=== PATIENT | male | born 1995 | race Caucasian/White ===

== ENCOUNTER 2017-12-25 11:11 | Emergency (ER) | payer OTHER ==
[~2017-12-25] VITALS: Ht 180.3 cm; Wt 63.6 kg
[2017-12-25 11:13] VITALS: TEMP 36.6; Ht 180.3 cm; Wt 63.6 kg
[2017-12-25] MEDS ORDERED: LORAZEPAM 2 MG/ML 1 ML VIAL IV STA (11:54)
[2017-12-25] MEDS ORDERED: SODIUM CHLORIDE 0.9% 1000ML 1,000 ML IV STA ×2 (11:54→13:41)
[2017-12-25] MEDS ORDERED: ONDANSETRON INJ 2 MG/ML 2 ML VIAL IV STA (11:54)
[2017-12-25 12:28] LABS: BASO % 0.1 %; BASO ABS # 0.02 K/uL (0-0.2); HEMATOCRIT 45.6 % (42-52); IG# 0.07 K/uL (0.00-0.02); LYMPH % 2.6 %; LYMPH ABS # 0.54 K/uL (1.2-3.4); MEAN CELL VOLUME 85.1 fL (80-100); MEAN CORPUSCULAR HEMOGLOBIN 31.7 pg (25-34); MEAN CORPUSCULAR HGB CONC 37.3 g/dl (32-36); MEAN PLATELET VOLUME 9.7 fL (7.4-10.4); MONO % 9.1 %; NEUT % 87.9 %; NEUT ABS # 18.37 K/uL (1.4-6.5); PLATELET COUNT 272 K/uL (130-400); RED CELL DISTRIBUTION WIDTH CV 12.5 % (11.5-14.5); RED CELL DISTRIBUTION WIDTH SD 38.3 fL (36.4-46.3)
[2017-12-25 12:46] LABS: ALBUMIN 4.8 gm/dl (3.4-5.0); CALCIUM 10.1 mg/dl (8.5-10.1); CREATININE 1.9 mg/dl (0.60-1.40); POTASSIUM 3.6 mmol/L (3.5-5.1)
[2017-12-25 12:49] LABS: TOTAL PROTEIN 8.6 gm/dl (6.4-8.2)
[2017-12-25 13:14] LABS: LIPASE 106 U/L (73-393)
[2017-12-25] MEDS ORDERED: EFF/375 PO (13:50)
[2017-12-25] MEDS ORDERED: ALPR1TAB2 PO (13:50)
[2017-12-25] MEDS ORDERED: BUPR200T2 PO (13:50)
[2017-12-25] MEDS ORDERED: PROM25TA9 PO (15:17)
--- NOTE | 2017-12-25 15:19 | EMERGENCY ROOM VISIT NOTE ---
History First contact with patient: 11:39 Chief Complaint: NAUSEA Stated Complaint: NAUSEA Nursing Triage Summary: Pt c/o n/v and anxiety since last night, has not had alcohol for a couple days and has not been taking his xanax. History of Present Illness The patient is a 22 year old male who presents to the Emergency Room with his mother, who is his medical power of personal injury attorney, with complaints of nausea, vomiting, and increased anxiety since approximately 2:00 this morning. The patient states his anxiety has been worsening over the past 3 days, and especially worse last night. From Saturday through Saturday last week, he has been drinking 6-10 6% beers per day, and states he stopped this 2 days ago. He does have a history of anxiety and depression, and states his symptoms have been out of control over the past few weeks. He was advised by his psychiatrist that the recommendation was for him to withdraw from school this semester due to his severe symptoms. The patient declined, and felt he could get himself through the school semester. He states his symptoms have been worsening over the past semester, and he has not been consistent with taking his Effexor, Wellbutrin, or Xanax. His father is in the end stages of ALS, which seems to worsen the patient's symptoms. He did stop has medications 2 days ago. He was seen at [facility] today at approximately 915 , and the recommendation was for him to come here due to his symptoms. He was given 4 mg Zofran sublingual at [facility], which did not help his symptoms. The patient has not recently been ill, and states over the past 2 days he has been very well. He describes constant nausea, and has been unable to tolerate fluids since last night. He reports weakness, chills, and difficulty breathing associated with his anxiety. He denies any coughing, congestion, rhinorrhea, sore throat, otalgia, wheezing, coughing up blood or sputum, abdominal pain, diarrhea, or other symptoms. He currently feels very panicked, and states he is experiencing a panic attack which is similar to previous panic attacks he has had. His psychiatrist in [place] was contacted by the patient's mother while she drove up to picking supervisor the patient from school, and did advise the patient's mother that she would be happy to see the patient as soon as possible. He does admit to using marijuana, but denies any other drug use. The patient denies any suicidal or homicidal ideations. Review of Systems A complete 10 point review of systems was reviewed with the patient with pertinent positives and negatives as per history of present illness. All else were negative. Past Medical/Surgical History Anxiety, depression Family History ALS - Father Social History Smoking Status: Never Smoker Smokeless Tobacco Use: No Alcohol Use: heavy Drug Use: marijuana Marital Status: single Housing Status: lives with roommate Occupation Status: [employer] student Current/Historical Medications Scheduled Bupropion (Wellbutrin Sr), 200 MG PO BID Venlafaxine Hcl (Effexor), 37.5 MG PO QPM Scheduled PRN Alprazolam (Xanax), 1 MG PO TID PRN for Anxiety/Agitation Promethazine Hcl (Phenergan), 25 MG PO Q6H PRN for Nausea Allergies Amoxicillin? Physical Exam Vital Signs Date Time Temp Pulse Resp B/P (MAP) Pulse Ox O2 Delivery O2 Flow Rate FiO2 12/25/17 15:51 99 18 136/94 99 12/25/17 13:30 91 16 153/75 96 Room Air 12/25/17 13:01 90 22 139/96 95 Room Air 12/25/17 12:42 Room Air 12/25/17 12:32 102 12/25/17 12:32 89 22 121/97 96 Room Air 12/25/17 12:02 102 22 147/106 100 Room Air 12/25/17 11:13 36.6 98 20 128/75 100 Room Air Physical Exam VITALS: Vitals are noted on the nurse's note and reviewed by myself. Vital signs stable. GENERAL: This is a 22-year-old white male, ill-appearing, but in no acute distress, diaphoretic, well-developed well-nourished. SKIN: Pale. The skin was without rashes, erythema, edema, or bruising. There is no tenting of the skin. Capillary reflex less than 2 seconds. HEAD: Normocephalic atraumatic. EARS: External auditory canals clear, tympanic membranes pearly mccabe without erythema or effusion bilaterally. EYES: Pupils equal round and reactive to light and accommodation. Conjunctivae without injection, sclerae without icterus. Extraocular movements intact. NOSE: Patent, turbinates without inflammation or discharge. No sinus tenderness. MOUTH: Mucous membranes moist. Tonsils are not enlarged. Pharynx without erythema or exudate. Uvula midline. Airway patent. Tongue does not deviate. NECK: Supple without nuchal rigidity. No lymphadenopathy. No thyromegaly. Cervical spine is nontender. No JVD. HEART: Regular rate and rhythm without murmurs gallops or rubs. LUNGS: Clear to auscultation bilaterally without wheezes, rales or rhonchi. No dullness to percussion. No retractions or accessory muscle use. ABDOMEN: positive bowel sounds x 4. Normal tympanic percussion. Diffuse tenderness on light palpation. The patient describes the tenderness in the abdominal wall. The abdomen was otherwise soft, nontender, without masses or organomegaly. Mariee sign negative. No guarding or rebound tenderness. MUSCULOSKELETAL: No muscle atrophy, erythema, or edema noted. Full range of motion without joint tenderness in all extremities. No tenderness to palpation. Normal gait. Strength 5/5 throughout. NEURO: Patient was alert and oriented to person place and time. Normal sensation to light and sharp touch. Deep tendon reflexes 2+ throughout. No focal neurological deficits. Medical Decision & Procedures Laboratory Results 12/25/17 12:08 Red Blood Count 5.36, Mean Corpuscular Volume 85.1, Mean Corpuscular Hemoglobin 31.7, Mean Corpuscular Hemoglobin Concent 37.3, Mean Platelet Volume 9.7, Neutrophils (%) (Auto) 87.9, Lymphocytes (%) (Auto) 2.6, Monocytes (%) (Auto) 9.1, Eosinophils (%) (Auto) 0.0, Basophils (%) (Auto) 0.1, Neutrophils # (Auto) 18.37, Lymphocytes # (Auto) 0.54, Monocytes # (Auto) 1.90, Eosinophils # (Auto) 0.00, Basophils # (Auto) 0.02 12/25/17 12:08 Test 12/25/17 12:08 12/25/17 13:45 White Blood Count 20.90 K/uL (4.8-10.8) Red Blood Count 5.36 M/uL (4.7-6.1) Hemoglobin 17.0 g/dL (14.0-18.0) Hematocrit 45.6 % (42-52) Mean Corpuscular Volume 85.1 fL (80-100) Mean Corpuscular Hemoglobin 31.7 pg (25-34) Mean Corpuscular Hemoglobin Concent 37.3 g/dl (32-36) Platelet Count 272 K/uL (130-400) Mean Platelet Volume 9.7 fL (7.4-10.4) Neutrophils (%) (Auto) 87.9 % Lymphocytes (%) (Auto) 2.6 % Monocytes (%) (Auto) 9.1 % Eosinophils (%) (Auto) 0.0 % Basophils (%) (Auto) 0.1 % Neutrophils # (Auto) 18.37 K/uL (1.4-6.5) Lymphocytes # (Auto) 0.54 K/uL (1.2-3.4) Monocytes # (Auto) 1.90 K/uL (0.11-0.59) Eosinophils # (Auto) 0.00 K/uL (0-0.5) Basophils # (Auto) 0.02 K/uL (0-0.2) RDW Standard Deviation 38.3 fL (36.4-46.3) RDW Coefficient of Variation 12.5 % (11.5-14.5) Immature Granulocyte % (Auto) 0.3 % Immature Granulocyte # (Auto) 0.07 K/uL (0.00-0.02) Erythrocyte Sedimentation Rate 6 mm/hr (0-14) Anion Gap 11.0 mmol/L (3-11) Est Creatinine Clear Calc Drug Dose 54.9 ml/min Estimated GFR () 56.7 Estimated GFR (Non- 49.0 BUN/Creatinine Ratio 8.1 (10-20) Calcium Level 10.1 mg/dl (8.5-10.1) Total Bilirubin 1.5 mg/dl (0.2-1) Aspartate Amino Transf (AST/SGOT) 41 U/L (15-37) Alanine Aminotransferase (ALT/SGPT) 25 U/L (12-78) Alkaline Phosphatase 77 U/L (45-117) Total Creatine Kinase 702 U/L (39-308) C-Reactive Protein < 0.29 mg/dl (0-0.29) Total Protein 8.6 gm/dl (6.4-8.2) Albumin 4.8 gm/dl (3.4-5.0) Globulin 3.8 gm/dl (2.5-4.0) Albumin/Globulin Ratio 1.3 (0.9-2) Lipase 106 U/L (73-393) Salicylates Level < 1.7 mg/dl (2.8-20) Acetaminophen Level < 2 ug/ml (10-30) Ethyl Alcohol mg/dL < 3.0 mg/dl (0-3) Urine Color YELLOW Urine Appearance CLEAR (CLEAR) Urine pH 8.5 (4.5-7.5) Urine Specific [place] 1.015 (1.000-1.030) Urine Protein TRACE (NEG) Urine Glucose (UA) NEG (NEG) Urine Ketones 1+ (NEG) Urine Occult Blood NEG (NEG) Urine Nitrite NEG (NEG) Urine Bilirubin NEG (NEG) Urine Urobilinogen NEG (NEG) Urine Leukocyte Esterase NEG (NEG) Urine RBC 0-4 /hpf (0-4) Urine WBC 1-5 /hpf (0-5) Urine Epithelial Cells 20-30 /lpf (0-5) Urine Bacteria NEG (NEG) Urine Hyaline Casts 1-5 /lpf (0-5) Urine Opiates Screen NEG (NEG) Urine Methadone, Qualitative NEG (NEG) Urine Barbiturates NEG (NEG) Urine Phencyclidine (PCP) Level NEG (NEG) Ur Amphetamine/Methamphetamine NEG (NEG) MDMA (Ecstasy) Screen NEG (NEG) Urine Benzodiazepines Screen POS (NEG) Urine Cocaine Metabolite NEG (NEG) Urine Marijuana (THC) POS (NEG) Medications Administered Medications (Trade) Dose Ordered Sig/Lopez Route Start Time Stop Time Status Last Admin Dose Admin Lorazepam (Ativan Inj) 1 mg NOW STAT IV 12/25/17 11:54 12/25/17 11:59 DC 12/25/17 12:35 1 MG Sodium Chloride 1,000 ml @ 999 mls/hr Q1H1M STAT IV 12/25/17 11:54 12/25/17 12:54 DC 12/25/17 12:35 999 MLS/HR Ondansetron HCl (Zofran Inj) 4 mg NOW STAT IV 12/25/17 11:54 12/25/17 11:59 DC 12/25/17 12:34 4 MG Sodium Chloride 1,000 ml @ 999 mls/hr Q1H1M STAT IV 12/25/17 13:41 12/25/17 14:41 DC 12/25/17 13:45 999 MLS/HR ECG Per My Interpretation Indication: vomiting Rate (beats per minute): 99 Rhythm: normal sinus Findings: no acute ischemic change, prolonged QT (388ms) Comparison ECG Date: no prior available ED Course The patient was seen and evaluated as above. IV access obtained, labs drawn. EKG performed. This was interpreted by myself as above. The patient was placed on the warehouse associate driver. The patient was given 1 L normal saline solution, 4 mg Zofran IV, and 1 mg Ativan IV. The patient was reassessed and is feeling much better, however continues to have some residual nausea. His appearance has improved, and he is now nondiaphoretic, and his skin is less pale. Patient was given a second liter of normal saline solution. The patient was reassessed and is feeling much better Discussed the case with Dr. Clark. We are in agreement with discharging the patient. I discussed the findings of all testing with the patient and his mother is at bedside. The patient was provided with copies of his labs for follow-up at home. The patient and his mother were agreeable to discharge, as patient was feeling much better. The patient will be given a prescription for Phenergan to take for nausea as directed, as his EKG did show slight QT prolongation. Discharge instructions reviewed, the patient was discharged home in good condition. Medical Decision This is a 22-year-old male patient presents to the emergency department today accompanied by his mother with complaints of nausea and vomiting which began approximately 2 AM. The patient has a long history of anxiety and depression, and states he has been having flareups of his anxiety and depression symptoms over the past several weeks, worse over the past 2 days as the patient has not been taking his medications as prescribed. He did discontinue his Effexor, Wellbutrin, and Xanax on his own without physician direction, as he was "in a bad place of my life". The patient was feeling okay physically until approximately 2:00 this morning. He did experience a panic attack prior to that time, however 2 AM began experiencing severe nausea and vomiting. The patient was up most of the night, and has had intractable nausea and vomiting since then. He suspects his symptoms are related to his psychiatric conditions and possibly medication withdrawal, but he also admits to drinking a significant amount of alcohol over the past week, which he also stopped 2 days ago. Here in the emergency department, the patient's workup showed leukocytosis of 20 ,000. I suspect this is related to the stress the patient has been under including the nausea and vomiting. The patient's ESR was 6. The patient's creatinine was elevated at 1.9, and CPK was elevated at 702. Again, I suspect this is related to the recent retching and vomiting. The patient's lipase was normal at 106. His AST was slightly elevated at 41, however there were no other hepatic abnormalities. The patient's BUN, GFR, and electrolytes are without abnormality. CRP was normal at 0.29. Toxicology was consistent with the patient's history, showing positive benzodiazepines and marijuana. The patient was given Ativan prior to urine testing. Testing was negative for alcohol, salicylates, and acetaminophen. Urinalysis did not show signs of infection. I suspect the patient's symptoms are related to his alcohol and medication withdrawal. He did discuss with him and his mother that it is possible there is a gastroenteritis component, however it is difficult to say for certain based on his examination. Patient is advised to follow-up closely with his PCP and psychiatrist, and his mother was agreeable. She states she has already contacted the psychiatrist regarding follow-up, the patient will be seen this week. The patient was certainly invited back to the emergency department for any worsening symptoms. He will be treated with Phenergan for nausea, as his EKG was concerning for slightly prolonged QT. All questions were answered to the patient and his mother satisfaction. Differential diagnosis includes alcohol withdrawal, medication withdrawal, drug use, alcohol overdose, anxiety, depression, panic attack, influenza, gastroenteritis, pancreatitis, gastritis, GERD, cardiac etiology, electrolyte or metabolic abnormality, renal or hepatic abnormality, malignancy, and others The chart was completed utilizing [employer] Speech voice recognition software. Grammatical errors, random word insertions, pronoun errors, and incomplete sentences are an occasional consequence of this system due to software limitations, ambient noise, and hardware issues. Any formal questions or concerns about the content, text, or information contained within the body of this dictation should be directly addressed to the provider for clarification. Medication Reconcilliation Current Medication List: was personally reviewed by me Blood Pressure Screening Patient's blood pressure: Normal blood pressure Impression Primary Impression: Alcohol withdrawal Additional Impressions: Medication withdrawal Nausea and vomiting Departure Information Dispostion Home / Self-Care Condition GOOD Prescriptions Promethazine Hcl (Phenergan) 25 Mg Tab 25 MG PO Q6H Y for Nausea, #12 TAB Prov: Zeina Bravo PA-C 12/25/17 Referrals No Doctor, Assigned (PCP) Patient Instructions ED Nausea Vomiting, ED Withdrawal Alcohol, ED Withdrawal Benzodiazepine, My [facility] Additional Instructions You have been treated in the Emergency Department your nausea and vomiting. As discussed, I suspect your symptoms are related to alcohol/medication withdrawal. You have been prescribed Phenergan to be used for any nausea or vomiting. Take as prescribed. For pain control, you can use the following [id number] medicines (if >12 yo): Ibuprofen(Motrin, Advil) may be used for fever or pain. Use 600mg every six hours as needed. Take with food. Avoid using more than 2400mg in a 24 hour period. Do not use 2400mg per day for more than three consecutive days without physician direction. Prolonged inappropriate use can lead to stomach upset or ulcers. (AND/OR) Acetaminophen(Tylenol) may be used for fever or pain. Use 1000mg every six hours as needed. Avoid using more than 3000mg in a 24 hour period. Please resume your regular medications as prescribed by her psychiatrist. Drink plenty of water and stay well hydrated. As with any trip to the Emergency Department, you should follow-up with your Primary Care Provider from today's visit. Please follow-up with your PCP within 1 week for reevaluation. Please follow-up with your psychiatrist as soon as possible. Return to the emergency department if your symptoms persist despite treatment plan outlined above or if the following symptoms occur: increased fevers, chills , worsening nausea/vomiting, blood in your stool or urine. Problem Qualifiers Primary Impression: Alcohol withdrawal Complication of substance-induced condition: uncomplicated Qualified Codes: F10.230 - Alcohol dependence with withdrawal, uncomplicated Additional Impressions: Medication withdrawal Substance type: sedative, hypnotic or anxiolytic Qualified Codes: F13.239 - Sedative, hypnotic or anxiolytic dependence with withdrawal, unspecified Nausea and vomiting Vomiting type: unspecified Vomiting Intractability: intractable Qualified Codes: R11.2 - Nausea with vomiting, unspecified
[2017-12-25 15:51] VITALS: BP 136/94; PULSE 99; O2SAT 99
== END 2017-12-25 15:52 | disposition home or self-care (01) ==
LOC: C.EDB 11:13 → C.EDC 15:52
DX: F10.230 Alcohol dependence with withdrawal, uncomplicated (principal); F13.239 Sedative, hypnotic or anxiolytic dependence with withdrawal, unspecified; D72.829 Elevated white blood cell count, unspecified; R79.89 Other specified abnormal findings of blood chemistry; R74.8 Abnormal levels of other serum enzymes; R94.5 Abnormal results of liver function studies; F41.8 Other specified anxiety disorders; Z82.0 Family history of epilepsy and other diseases of the nervous system